=== PATIENT | male | born 1965 | race Caucasian/White ===

== ENCOUNTER 2022-10-04 02:56 | Emergency (ER) | payer OTHER ==
[~2022-10-04] VITALS: Ht 182.9 cm; Wt 124.7 kg
[2022-10-04] MEDS ORDERED: LIDOCAINE 2% (GLYDO= UROJET) 10 ML JELLY MM ONE ×2 (03:11→03:15)
--- NOTE | 2022-10-04 03:20 | NUR ---
Patient arrived at the ER with c/o unable to urinate for 1hr assoc. with bladder pain.
--- NOTE | 2022-10-04 03:25 | NUR ---
Dr. Arce at bedside for MSE.
[2022-10-04 03:29] LABS: *BILIRUBIN,URIN NEGATIVE (NEGATIVE); *BLOOD, URINE 2+ (NEGATIVE); *CLARITY,URINE CLEAR (CLEAR); *COLOR,URINE YELLOW (YELLOW); *KETONES,URINE NEGATIVE (NEGATIVE); *UROBILINOGEN,URINE 0.2 E.U./dl (NORMAL); LEUKOCYTE ESTERASE ,URINE NEGATIVE (NEGATIVE); NITRITE, URINE NEGATIVE (NEGATIVE); UGLUCOSE NEGATIVE (NEGATIVE)
[2022-10-04 03:30] LABS: BACTERIA,URINE NONE SEEN /HPF (NONE SEEN); SQUAMOUS EPITHELIAL CELL,UR NONE SEEN /HPF (NONE SEEN); WBC,URINE 0-3 /HPF (0-3)
[2022-10-04 04:05] VITALS: BP 155/92
--- NOTE | 2022-10-04 04:05 | NUR ---
Patient discharged to home in stable condition. Written and verbal after care instructions given. Patient verbalizes understanding of instructions. Stressed follow up or return to ER for worsening s/s. Patient ambulated out of the ER with steady gait. All belongings with patient.
== END 2022-10-04 04:06 | disposition home or self-care (01) ==
LOC: ER 02:56
DX: R33.9 Retention of urine, unspecified (principal); E78.5 Hyperlipidemia, unspecified
CPT/HCPCS: 51702; A4663